=== PATIENT | male | born 1990 | race Caucasian/White ===

== ENCOUNTER 2021-12-26 09:59 | Emergency (ER) | payer OTHER ==
[~2021-12-26] VITALS: Ht 182.9 cm; Wt 145.4 kg
[2021-12-26] MEDS ORDERED: ALBU8HFA IH (10:02)
[2021-12-26] MEDS ORDERED: ANTIBIOTIC EYE OD (10:02)
[2021-12-26] MEDS ORDERED: CHOL400T56 PO (10:02)
[2021-12-26] MEDS ORDERED: PROPARACAINE HCL 0.5% 15 ML OPHTHALMIC SOLUTION OU ONE (10:45)
[2021-12-26] MEDS ORDERED: FLUORESCEIN SODIUM 1 MG STRIP OD ONE (10:45)
[2021-12-26 11:26] VITALS: BP 144/95
== END 2021-12-26 11:31 | disposition home or self-care (01) ==
LOC: EMS 10:03
DX: H16.001 Unspecified corneal ulcer, right eye (principal); H18.603 Keratoconus, unspecified, bilateral
CPT/HCPCS: 99283

== ENCOUNTER 2022-06-03 22:10 | Emergency (ER) | payer OTHER ==
[~2022-06-03] VITALS: Ht 180.3 cm; Wt 145.4 kg
[~2022-06-03 22:10] MED LIST: ALBU8HFA IH; ANTIBIOTIC EYE OD; CHOL400T56 PO
[2022-06-03] MEDS ORDERED: LIDOCAINE 1% 10 ML VIAL ID ONE (23:00)
[2022-06-03] MEDS ORDERED: PERTUSS(ACELL),DIPH,TET VAC/PF 0.5 ML SYRINGE IM. ONE (23:00)
[2022-06-03 23:30] VITALS: BP 143/88
== END 2022-06-04 01:39 | disposition home or self-care (01) ==
LOC: EMS 22:11
DX: S61.411A Laceration without foreign body of right hand, initial encounter (principal); J45.909 Unspecified asthma, uncomplicated; W25.XXXA Contact with sharp glass, initial encounter; Y93.89 Activity, other specified; Y92.89 Other specified places as the place of occurrence of the external cause; Y99.8 Other external cause status
CPT/HCPCS: 99283; 90715; 90471; 12002; J3490